=== PATIENT | female | born 1985 | race Caucasian/White ===

== ENCOUNTER → 2018-06-06 | Outpatient (CLI) | payer BC ==
[2018-06-06 18:53] LABS: Basophils % (A) 1 %; Eosinophils # (A) 0.2 k/uL (0-0.7); Eosinophils % (A) 2 %; HGB 13.3 gm/dL (11.4-16.0); Lymphocytes # (A) 2.7 k/uL (1.0-4.8); Lymphocytes % (A) 34 %; MCH 31.6 pg (25.0-35.0); MCV 90.2 fL (80.0-100.0); Mean Platelet Volume 8.3; Monocytes # (A) 0.4 k/uL (0-1.0); Monocytes % (A) 4 %; Neutrophils # (A) 4.6 k/uL (1.3-7.7); Neutrophils % (A) 58 %; Platelet Count 269 k/uL (150-450); RBC 4.21 m/uL (3.80-5.40); RDW 13.5 % (11.5-15.5); WBC 7.9 k/uL (3.8-10.6)
== END | disposition home or self-care (01) ==
LOC: LABWHC1 16:11
PROVIDERS: ATTEND Obstetrics & Gynecology
DX: Z01.812 Encounter for preprocedural laboratory examination (principal)
CPT/HCPCS: 36415; 85025

== ENCOUNTER 2018-06-10 06:23 | Day surgery (SDC) | payer BC ==
[2018-06-04 10:39] VITALS: BMI 33.6
--- NOTE | 2018-06-07 16:15 | P.HPOB ---
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 Risks/benefits/alternatives to this procedure were discussed with the patient in detail all questions were answered for her prior to proceeding to the operating room. It is also noted that she desires permanent sterilization and therefore a flap scopic tubal occlusion with a prescription has been scheduled. Risks/benefits and alternatives to this were also reviewed and all questions are answered for her at this time. On physical exam vital signs are stable and afebrile. Heart regu lar, lungs clear, extremities are without pain. Abdomen is soft and nontender. Positive bowel sounds are noted. Pelvic exam is otherwise unremarkable. Assessment family planning and cervical dysplasia. Plan repeat colposcopy and lap tubal. Past Medical History Past Medical History: No Reported History History of Any Multi-Drug Resistant Organisms: None Reported Past Surgical History: No Surgical Hx Reported Past Anesthesia/Blood Transfusion Reactions: No Reported Reaction Additional Past Anesthesia/Blood Transfusion Reaction / Comment(s): WISDOM TEETH REMOVAL IS ONLY ANESTH HX Past Psychological History: ADD/ADHD Smoking Status: Never smoker Past Alcohol Use History: Occasional Past Drug Use History: None Reported - Past Family History Mother Family Medical History: No Reported History Medications and Allergies Home Medications Medication Instructions Recorded Confirmed Type Dextroamphetamine/Amphetamine 30 mg PO BID 06/04/18 06/04/18 History [Adderall] Allergies Allergy/AdvReac Type Severity Reaction Status Date / Time No Known Allergies Allergy Verified 06/04/18 10:30 Exam Osteopathic Statement: *. No significant issues noted on an osteopathic structural exam other than those noted in the History and Physical/Consult.
[~2018-06-10 06:23] MED LIST: DEXAMETHASONE SOD PHOSPHATE 10 MG/ML 1 ML VIAL IV ONE; LACTATED RINGERS 1,000 ML IV SCH; MIDAZOLAM 2 MG/2 ML VIAL IV PRN; ONDANSETRON 4 MG/2 ML VIAL IVP ONE; Pre Op ABX Message 1 EACH MISC MISCELLANE ONE; SCOPOLAMINE 1.5MG/72HR PATCH TRANSDERM ONE
[2018-06-10] MEDS ORDERED: LACTATED RINGERS 1,000 ML IV ONE (06:41)
[2018-06-10] MEDS ORDERED: LIDOCAINE 1% 20 ML VIAL (10MG/ML) FOR IV START INTRADERMA ONE (06:41)
[2018-06-10] MEDS ORDERED: PROPOFOL 10 MG/ML 20 ML VIAL IV ONE (07:43)
[2018-06-10] MEDS ORDERED: MIDAZOLAM 2 MG/2 ML VIAL ONE (07:43)
[2018-06-10] MEDS ORDERED: LIDOCAINE 1% INJ 10MG/ML (20 ML MDV) ONE (07:43)
[2018-06-10] MEDS ORDERED: KETOROLAC 30 MG/ML 1 ML VIAL ONE (07:43)
[2018-06-10] MEDS ORDERED: fentaNYL (PF) 50 MCG/ML 2 ML AMP ONE (07:43)
[2018-06-10] MEDS ORDERED: SUCCINYLCHOLINE CHLORIDE 100 MG/5 ML SYR IV ONE (07:43)
[2018-06-10] MEDS ORDERED: BUPIVACAINE (PF) 0.5% 30 ML VIAL SQ ONE (08:26)
--- NOTE | 2018-06-10 08:43 | P.OP ---
Date of Procedure: 06/10/18 Preoperative Diagnosis: Cervical dysplasia and family planning Postoperative Diagnosis: Same Procedure(s) Performed: Laparoscopic tubal ligation with Filshie clips and a LEEP colposcopy Anesthesia: RICHARD Surgeon: Bryan Alston Estimated Blood Loss (ml): 15 Urine output (ml): 100 Pathology: other (Cervical cone) Condition: stable Disposition: same day Operative Findings: Pathology pending Description of Procedure: Patient was taken to the operating suite where a general anesthetic was found be adequate. She was prepped and draped in the normal sterile fashion and placed in the dorsal lithotomy position. Initially a speculum was inserted into the vagina and the anterior lip of the cervix identified and grasped with an Allis clamp. Uterus was then sounded to 8 cm and a uterine manipulator was inserted without difficulty. Red rubber catheter was then used to drain the bladder of urine instruments were removed and gloves were changed. Attention was then turned the abdominal portion procedure were 2 mL of quarter percent Marcaine was injected periumbilically and through this injected anesthetic a 5 mm skin incision was made. Through this incision under direct visualization with an optical trocar and sleeve the camera was inserted. Once peritoneal placement was assured gas was allowed to fully insufflate the abdomen and patient was placed in steep Trendelenburg position. Second 8 mm skin incision was then made midline 3 cm above the pubic symphysis and through this incision another port and sleeve were inserted. This was also done under direct visualization. Once this was accomplished uterus was elevated and observations pelvis were made. First the right fallopian tube than left fallopian tube had a Filshie clip applied and no bleeding is noted in the mesosalpinx. Her for all instruments removed and gas allowed to expel from the abdomen. 5 deep breaths were provided during this process. Once this was accomplished ports were removed with the camera and 4-0 Vicryl used to close incision subcuticular. Another 6 mL of quarter percent Marcaine was injected around the incisions. Once this was accomplished attention was turned to the LEEP colposcopy. Coated speculum was inserted into the vagina and the ectocervix was covered in Lugol solution. Colposcope was then brought in and observations and cervix were noted. The 2 semielliptical was then used to take a cervical conization. It did come off in pieces however. Once, was taken out it was sent to pathology for evaluation and ball-tipped cautery was used to obtain excellent hemostasis across the cervix. Small amount of Monsel solution was then inserted. All instruments were then removed. Sponge, lap, needle counts were all correct 2. Patient was then taken to the recovery room in stable and satisfactory condition. Plan - Discharge Summary Discharge Rx Participant: No New Discharge Prescriptions: New Ibuprofen [Motrin] 600 mg PO Q6HR PRN #30 tab PRN Reason: Pain HYDROcodone/APAP 5-325MG [[place] 5-325] 1 tab PO Q4HR PRN #20 tab PRN Reason: Pain No Action Dextroamphetamine/Amphetamine [Adderall] 30 mg PO BID Discharge Medication List Dextroamphetamine/Amphetamine [Adderall] 30 mg PO BID 06/04/18 [History] HYDROcodone/APAP 5-325MG [[place] 5-325] 1 tab PO Q4HR PRN #20 tab 06/10/18 [Rx] Ibuprofen [Motrin] 600 mg PO Q6HR PRN #30 tab 06/10/18 [Rx] Follow up Appointment(s)/Referral(s): Bryan Alston DO [Doctor of Osteopathic Medicine] - 2 Weeks Activity/Diet/Wound Care/Special Instructions: No heavy lifting, limit stairs and driving, and pelvic rest. If any high temperatures, heavy bleeding, or severe pain call my office Discharge Disposition: HOME SELF-CARE
[2018-06-10] MEDS: HYDROmorphone 0.5 MG/0.5 ML SYRINGE IVP PRN ×4 (08:46→09:10)
[2018-06-10 08:52] VITALS: TEMP 96.9
[2018-06-10 09:02] VITALS: RESP 16
[2018-06-10 10:09] VITALS: BP 101/64; PULSE 60
== END 2018-06-10 10:49 | disposition home or self-care (01) ==
LOC: OR 06:23
PROVIDERS: ATTEND Obstetrics & Gynecology
DX: R87.612 Low grade squamous intraepithelial lesion on cytologic smear of cervix (LGSIL) (principal); F90.9 Attention-deficit hyperactivity disorder, unspecified type; Z79.899 Other long term (current) drug therapy
CPT/HCPCS: 81025; 88307; 58671; 57461; J2250; J1100; J2405; J2001; J3010; J1885; J0330; J2704; J1170

== ENCOUNTER → 2018-10-09 | Outpatient (CLI) | payer BC ==
[2018-10-09 17:02] LABS: Basophils # (A) 0.1 k/uL (0-0.2); Basophils % (A) 1 %; Eosinophils # (A) 0.2 k/uL (0-0.7); Eosinophils % (A) 2 %; HCT 40.3 % (34.0-46.0); HGB 13.8 gm/dL (11.4-16.0); Lymphocytes % (A) 34 %; MCH 31.9 pg (25.0-35.0); MCHC 34.3 g/dL (31.0-37.0); MCV 92.9 fL (80.0-100.0); Mean Platelet Volume 7.9; Monocytes # (A) 0.4 k/uL (0-1.0); Monocytes % (A) 5 %; Neutrophils % (A) 57 %; Platelet Count 234 k/uL (150-450); RBC 4.33 m/uL (3.80-5.40); RDW 12.9 % (11.5-15.5); WBC 8.8 k/uL (3.8-10.6)
[2018-10-09 17:06] LABS: Amorphous Sediment,Urine Rare /hpf; Appearance,Urine Cloudy (Clear); Bilirubin,Urine Negative (Negative); Blood,Urine Negative (Negative); Color,Urine Light Yellow; Glucose,Urine (UA) Negative (Negative); Ketones,Urine Negative (Negative); Leukocyte Esterase,Urine Moderate (Negative); Nitrite,Urine Negative (Negative); Protein,Urine Negative (Negative); RBC,Urine 2 /hpf (0-5); Specific Gravity,Urine 1.006 (1.001-1.035); Squamous Epithelial Cell,Urine 13 /hpf (0-4); Urobilinogen,Urine <2.0 mg/dL (<2.0); WBC,Urine 12 /hpf (0-5)
[2018-10-09 17:09] LABS: African American GFR (CKD) >90 (>60 ml/min/1.73 sqM); Anion Gap 11 mmol/L; Blood Urea Nitrogen 13 mg/dL (7-17); Calcium 9.3 mg/dL (8.4-10.2); Carbon Dioxide 23 mmol/L (22-30); Chloride 105 mmol/L (98-107); Glucose 90 mg/dL (74-99); Potassium 4.2 mmol/L (3.5-5.1); Sodium 139 mmol/L (137-145)
== END | disposition home or self-care (01) ==
LOC: LABPAT 16:23
PROVIDERS: ATTEND Urology
DX: Z01.812 Encounter for preprocedural laboratory examination (principal); N39.3 Stress incontinence (female) (male); R35.0 Frequency of micturition
CPT/HCPCS: 80048; 81001; 85025; 87086

== ENCOUNTER 2018-10-16 08:40 | Observation (INO) | payer BC ==
--- NOTE | 2018-10-15 13:45 | P.GSHP ---
History of Present Illness H&P Date: 10/15/18 33 yo white female with documented stress urinary incontinence noted after her 2 nd child 10 years ago SHe failed aggressive kegal exercises She failed medicatiion Her evaluation identified a normal bladder with mellissa Because of her younger age I will do a pubovaginal sling the alternatives and risks were discussed. - Constitutional Constitutional: Denies chills, Denies fever - EENT Eyes: denies blurred vision, denies pain Ears, nose, mouth and throat: Denies headache, Denies sore throat - Cardiovascular Cardiovascular: Denies chest pain, Denies shortness of breath - Respiratory Respiratory: Denies cough, Denies 7 - Gastrointestinal Gastrointestinal: Denies abdominal pain, Denies diarrhea, Denies nausea, Denies vomiting - Genitourinary (Female) Genitourinary: Denies dysuria, Denies hematuria - Genitourinary (Male) Genitourinary: Denies dysuria, Denies hematuria - Musculoskeletal Musculoskeletal: Denies myalgias - Integumentary Integumentary: Denies pruritus, Denies rash - Neurological Neurological: Denies numbness, Denies weakness - Psychiatric Psychiatric: Denies anxiety, Denies depression - Endocrine Endocrine: Denies fatigue, Denies weight change Past Medical History Past Medical History: No Reported History History of Any Multi-Drug Resistant Organisms: None Reported Past Surgical History: Tubal Ligation Additional Past Surgical History / Comment(s): LEEP Past Anesthesia/Blood Transfusion Reactions: No Reported Reaction Additional Past Anesthesia/Blood Transfusion Reaction / Comment(s): WISDOM TEETH REMOVAL IS ONLY ANESTH HX Smoking Status: Never smoker - Past Family History Mother Family Medical History: No Reported History Medications and Allergies Home Medications Medication Instructions Recorded Confirmed Type Dextroamphetamine/Amphetamine 30 mg PO BID 06/04/18 10/11/18 History [Adderall] Allergies Allergy/AdvReac Type Severity Reaction Status Date / Time No Known Allergies Allergy Verified 10/11/18 10:12 Surgical - Exam - General well developed, well nourished, no distress - Eyes PERRL - ENT no hearing loss - Neck no masses, trachea midline - Respiratory normal expansion, normal respiratory effort - Cardiovascular Rhythm: regular - Abdomen Abdomen: soft, non tender - Genitourinary hypermobile urethra with mellissa normal external genitalia - Integumentary no rash, no growths - Neurologic normal coordination, normal sensation - Musculoskeletal normal gait, normal posture - Psychiatric oriented to time, oriented to person, oriented to place, speech is normal, memory intact Assessment and Plan Assessment: Impression: MELLISSA type 2 Plan: Pubovaginal sling with cysto The risks including injury to the adjacent organs, infection bleeding pain retention as well as persistence of her incontinence have been expalined understood and accepted.
[~2018-10-16 08:40] MED LIST changes: -MIDAZOLAM 2 MG/2 ML VIAL IV PRN; -Pre Op ABX Message 1 EACH MISC MISCELLANE ONE; -SCOPOLAMINE 1.5MG/72HR PATCH TRANSDERM ONE
[2018-10-16] MEDS: MIDAZOLAM 2 MG/2 ML VIAL IV PRN ×2 (09:27→12:13)
[2018-10-16] MEDS ORDERED: HYDROmorphone (PF) 1 MG/ML ONE (10:28)
[2018-10-16] MEDS ORDERED: MIDAZOLAM 2 MG/2 ML VIAL ONE (10:28)
[2018-10-16] MEDS ORDERED: KETOROLAC 30 MG/ML 1 ML VIAL ONE (10:28)
[2018-10-16] MEDS ORDERED: LIDOCAINE 1% INJ 10MG/ML (20 ML MDV) ONE (10:28)
[2018-10-16] MEDS ORDERED: PROPOFOL 10 MG/ML 20 ML VIAL IV ONE (10:28)
[2018-10-16] MEDS ORDERED: fentaNYL (PF) 50 MCG/ML 2 ML AMP ONE (10:28)
[2018-10-16] MEDS ORDERED: VASOPRESSIN 20 UNIT/ML 1 ML VIAL IM ONE (10:53)
[2018-10-16] MEDS ORDERED: BACITRACIN 500 UNIT/GM OINT 28.4 GM TUBE TOPICAL ONE (11:30)
[2018-10-16] MEDS ORDERED: LACTATED RINGERS 1,000 ML IV ONE (11:30)
[2018-10-16] MEDS ORDERED: ONDANSETRON 4 MG/2 ML VIAL IVP PRN (11:30)
--- NOTE | 2018-10-16 11:37 | P.OP ---
Date of Procedure: 10/16/18 Preoperative Diagnosis: Stress urinary incontinence Postoperative Diagnosis: Same Procedure(s) Performed: Pubovaginal sling with cystoscopy Anesthesia: RICHARD Surgeon: Stephen Frye Estimated Blood Loss (ml): 200 Pathology: none sent Condition: stable Disposition: PACU Indications for Procedure: The patient is 33. She has documented stress incontinence for the last 10 years. This is identified on both history and physical examination as well as urodynamic studies. She has a hypermobile urethra. Because of her young age she'll have a pubovaginal sling. Description of Procedure: Patient is brought to the operating suite. She is given a successful general endotracheal anesthesia. She's placed lithotomy position with sterile prep and drape. A vaginal speculum was introduced. A sterile catheters introduced. A Pfannenstiel incision is made. I dissect down through subcutaneous tissue and expose and clean the rectus fascia. An ellipse of 2 x 8 cm of rectus fascias excised. The rectus fascias closed with 2 running 0 PDS stitches. I then place 2-0 Prolene stitches through each end of the fascial graft. I then elevated the anterior vaginal cost off the submucosa with 10 mL of a mixture of 20 mg of Pitressin and 200 mL of saline. A midline suburethral incision is made. I dissect lateral the bladder neck bilaterally penetrating the endopelvic fascia bilaterally. I passed the Stamey needles to periodically at the corners of of the pubis. He is going to the vaginal space. I secured the Prolene stitches through the eyes of the Stamey needles and bring the Prolene stitches above into the rectus region. The graft lays at the bladder neck appeared to remove the Zarate and performed cystoscopy to make sure there is no injury of the bladder neck with the Stamey needles and there is none. I then observe the bladder neck elevation with elevation of the Prolene stitches. I secured the middle of the graft to the suburethral tissue with 4-0 Vicryl's. Closed the vaginal mucosa with a running 2-0 Vicryl. Tied the Prolene stitches to one another over the rectus fascia such that 2 fingerbreadths could fit between the tied Prolene and the rectus fascia. Subcutaneous tissues closed with 3-0 Vicryl and the skin with a 4-0 Monocryl. Blood loss is 200 mL. The patient tolerated procedure well and will be placed in the hospital postoperatively.
[2018-10-16] MEDS: HYDROmorphone 0.5 MG/0.5 ML SYRINGE IVP PRN ×2 (12:02→12:07)
[2018-10-16] MEDS: HYDROcodone/APAP 5-325MG 1 EACH TAB PO PRN ×2 (14:17→19:37)
[2018-10-16 14:39] VITALS: BMI 35.5
[2018-10-16] MEDS: DEXTROSE 5%-0.45% NACL 1,000 ML IV SCH (16:41)
[2018-10-16] MEDS: KETOROLAC 30 MG/ML 1 ML VIAL IVP PRN ×2 (17:36→23:03)
[2018-10-16] MEDS: Dextroamphetamine/Amphetamine [Adderall] PO SCH (20:50)
[2018-10-17] MEDS: DEXTROSE 5%-0.45% NACL 1,000 ML IV SCH (00:18)
[2018-10-17] MEDS: HYDROcodone/APAP 5-325MG 1 EACH TAB PO PRN ×2 (03:27→09:59)
[2018-10-17 03:30] VITALS: RESP 16
[2018-10-17] MEDS: KETOROLAC 30 MG/ML 1 ML VIAL IVP PRN ×2 (06:08→12:44)
--- NOTE | 2018-10-17 07:05 | P.PN ---
Subjective Progress Note Date: 10/17/18 The patient is in her first postoperative day from a pubovaginal sling. She had an uneventful night. The packing and catheter removed this morning. She is voiding little at this point in time. He is having gas pain. We'll see how she does a day goes on is whether she'll be discharged home later today or tomorrow. Vital signs are stable. Her urine output is good. Objective - Vital Signs Vital signs: Vital Signs Temp 98.4 F 10/17/18 06:12 Pulse 55 L 10/17/18 06:12 Resp 16 10/17/18 06:12 BP 111/63 10/17/18 06:12 Pulse Ox 99 10/17/18 06:12 Intake & Output 10/16/18 10/17/18 10/17/18 18:59 06:59 18:59 Intake Total 1050 1600 Output Total 200 2200 Balance 850 -600 Intake: IV 1050 Intake, IV Titration 1000 Amount Dextrose 5%-0.45% NaCl 1, 1000 000 ml @ 75 mls/hr IV . [id number] [facility], [facility]–1983 Rx#:[id number] Oral 600 Output: Urine 100 2200 Estimated Blood Loss 100 Other: Voiding Method Indwelling Catheter Indwelling Catheter
[2018-10-17] MEDS: Dextroamphetamine/Amphetamine [Adderall] PO SCH (08:33)
[2018-10-17 12:51] VITALS: BP 120/72; PULSE 69; TEMP 98.4
== END 2018-10-17 13:50 | disposition home or self-care (01) ==
LOC: OR 08:40 → 6PED 11:41 → OR 10-17 04:19 → 6PED 10-17 04:20
PROVIDERS: ADMIT Urology; ATTEND Urology
DX: N39.3 Stress incontinence (female) (male) (principal); N36.41 Hypermobility of urethra; F98.8 Other specified behavioral and emotional disorders with onset usually occurring in childhood and adolescence; Z79.899 Other long term (current) drug therapy; Z98.51 Tubal ligation status
CPT/HCPCS: 57288; 81025; 20926; G0378; J2250; J1100; J2405 ×2; J0690; J2001; J3010; J1885 ×2; J1170 ×2; J2704